=== PATIENT | female | born 1965 | race Two or more races ===

== ENCOUNTER → 2017-11-11 | Outpatient (CLI) | payer OTHER | END | disposition home or self-care (01) | LOC: LAB 23:26 | DX: Z02.83 Encounter for blood-alcohol and blood-drug test (principal) | CPT/HCPCS: 36415 ==

== ENCOUNTER 2020-07-04 02:15 | Emergency (ER) | payer SELFPAY | END 2020-07-04 04:14 | disposition left against medical advice (07) | LOC: ER 02:15 | DX: R11.2 Nausea with vomiting, unspecified (principal); Z53.21 Procedure and treatment not carried out due to patient leaving prior to being seen by health care provider ==